=== PATIENT | female | born 1935 | race Caucasian/White ===

== ENCOUNTER → 2017-09-22 | Outpatient (CLI) | payer MEDICARE, BC ==
--- NOTE | 2017-09-23 09:03 | RSPPFT ---
DATE OF PROCEDURE: 09/22/17 COMMENTS: VOLUMES DYNAMIC: FVC and FEV1 moderately reduced. STATIC: TLC, RV and FRC normal. FLOWS: FEV1% mildly reduced; FEF 25-75 severely reduced. DIFFUSION: Low normal. FLOW VOLUME LOOP: Pattern of variable intrathoracic airways obstruction. IMPRESSION: Moderately severe obstructive ventilatory defect with no significant hyperinflation. Airways resistance is increased and there is improvement post-bronchodilator. Diffusion capacity is low normal.
== END ==
LOC: HRSP 08:56
PROVIDERS: ATTEND Internal Medicine
DX: J44.9 Chronic obstructive pulmonary disease, unspecified (principal)
CPT/HCPCS: 94060; 94618; 94726; 94729; 95012